=== PATIENT | male | born 1960 | race Caucasian/White ===

== ENCOUNTER → 2025-04-05 11:33 | Outpatient (REF) | payer OTHER, SELFPAY | LOC: MRI 3T 11:33 | PROVIDERS: ATTENDING PHYSICIAN Pain Medicine Interventional Pain Medicine; FAMILY PHYSICIAN Internal Medicine Geriatric Medicine | DX: M54.16 Radiculopathy, lumbar region (principal) | CPT/HCPCS: 72148 ==